=== PATIENT | male | born 1970 | race Caucasian/White ===

== ENCOUNTER 2022-09-18 03:58 | Emergency (ER) | payer OTHER, SELFPAY ==
[2022-09-18 04:01] VITALS: BP 140/88; PULSE 72; RESP 20; TEMP 36.6
--- NOTE | 2022-09-18 04:10 | PC.NURSE ---
patient refused to tell home meds or past medical history, screaming it doesn't apply to a cut on my finger. Sisters only knew no allergies
--- NOTE | 2022-09-18 04:18 | ED.WOUNDLAC ---
HPI - Wound/Laceration General Chief Complaint: Wound/Laceration Stated Complaint: finger injury Source: patient Mode of arrival: ambulatory Limitations: no limitations History of Present Illness HPI narrative: patient with a flap-type laceration to his right index finger occurred earlier today currently not bleeding no numbness or tingling has good range of motion in his finger and is not up-to-date with his tetanus. Onset (ago): hour(s) Place: home Patient tetanus UTD: No Context: accidental Associated symptoms: none Related Data Home Medications Medication Instructions Recorded Confirmed Unable to Obtain Home Medications 09/18/22 09/18/22 Allergies Allergy/AdvReac Type Severity Reaction Status Date / Time No Known Allergies Allergy Mild Unverified 03/01/03 11:09 Review of Systems Review of Systems: All systems reviewed & are unremarkable except as noted in HPI and below PMFSH Past Medical History Medical History Patient denies medical problems Exam Const: General: healthy appearing Nutritional Appearance: well nourished Orientation/consciousness: patient oriented x3 Limitations: no limitations HENMT: Head: normal to inspection Face/Nose/Sinus: Normal external nose present Face and sinus: normal facial exam Mouth: Yes Normal oral and palatal mucosa present Eyes: Conjunctivae: conjunctivae normal EOM: EOMs intact bilaterally Neck: Neck: normal visual inspection Chest: Chest palpation & inspection: normal inspection of the chest Resp: Effort & Inspection: normal respiratory effort Auscultation: clear to auscultation bilaterally Cardio: Rate: regular rate Rhythm: regular rhythm GI: GI Palp: Yes Soft to palpation Auscultation: normal bowel sounds Urinary Catheter: Urinary Catheter: patent and draining Skin: General skin exam: normal color Rashes: no rashes Wounds: wounds noted Extrem: General: normal to inspection Psych: Mental Status: mental status grossly normal Affect: normal affect Course Course Emergency Course: patient updated with his tetanus and Dermabond placed on the flap laceration on his index finger. Vital Signs Vital signs: Vital Signs Temperature 36.6 C 09/18/22 04:01 Pulse Rate 72 09/18/22 04:01 Respiratory Rate 20 09/18/22 04:01 Blood Pressure 140/88 09/18/22 04:01 Temperature 36.6 C 09/18/22 04:01 Pulse Rate 72 09/18/22 04:01 Respiratory Rate 20 09/18/22 04:01 Blood Pressure 140/88 09/18/22 04:01 Procedures Laceration Laceration 1: Side (If applicable): right Size (cm): 2 Description: flap Pre-repair: wound explored and irrigated ====== Skin Level ====== Skin layer closed with: dermabond ====== Subcutaneous Layer ====== ====== Muscle Layer ====== ====== Tendon Layer ====== Critical Care Time Critical Care Time Critical Care Time: No Discharge Plan Discharge Clinical Impression: Laceration Patient Disposition: Home, Self-Care Condition: Stable Instructions: Antibiotic Form, Laceration (ED) Additional Instructions: Advised follow-up with primary care physician if symptoms persist or worsen. Prescriptions: No Action Unable to Obtain Home Medications Follow-up/Referrals: Cristiane,Everton Ochoa MD [Primary Care Provider] - Time of Disposition: :
[2022-09-18] MEDS: TETANUS,DIPHTHERIA,AC PERTUSSIS ADULT 0.5 ML (ADACEL) IM (04:21)
[2022-09-18 04:27] VITALS: BP 132/88; PULSE 66; RESP 16; TEMP 36.4
--- NOTE | 2022-09-18 04:35 | PC.NURSE ---
trying to put dressing on finger, patient kept trying to pinch nurse, pullling down pants asking if he was cute
== END 2022-09-18 04:36 | disposition home or self-care (01) ==
PROVIDERS: Emergency Provider Emergency Medicine; PCP Internal Medicine
DX: S61.210A Laceration without foreign body of right index finger without damage to nail, initial encounter (principal); X58.XXXA Exposure to other specified factors, initial encounter; Z23 Encounter for immunization
CPT/HCPCS: 12001; 90471; 90715; 99282

== ENCOUNTER 2024-03-28 15:49 | Emergency (ER) | payer OTHER, SELFPAY ==
[2024-03-28 16:19] VITALS: BP 149/95; PULSE 96; RESP 20; TEMP 36.7; O2SAT 98
--- NOTE | 2024-03-28 16:45 | ED.GENADULT ---
HPI - General Adult General Chief complaint: Upper Respiratory Infection Stated complaint: positive covid/wants script Time Seen by Provider: 03/28/24 16:45 Source: patient, RN notes reviewed and old records reviewed Mode of arrival: ambulatory Limitations: no limitations History of Present Illness HPI narrative: 53-year-old male presents to the [facility] after testing positive for COVID-19 at a local pharmacy. Has a test with him. Patient states that he started with the body aches and chills today. Treatments prior to arrival: none Related Data Home Medications Medication Instructions Recorded Confirmed montelukast 10 mg tablet 10 mg PO DAILY 03/28/24 03/28/24 Allergies Allergy/AdvReac Type Severity Reaction Status Date / Time No Known Allergies Allergy Mild Verified 03/28/24 16:22 Review of Systems Review of Systems: All systems reviewed & are unremarkable except as noted in HPI and below Constitutional: Constitutional: Reports as per HPI, Reports body ache(s) and Reports chills Eyes: Eyes: Reports no additional eye complaints ENT: Reports system reviewed and no additional complaints, except as documented Cardiovascular: Cardiovascular: Reports no additional cardiovascular complaints, Denies chest pain and Denies dyspnea Respiratory: Respiratory: Reports no additional respiratory complaints, Denies chest congestion, Denies cough and Denies dyspnea Gastrointestinal: Gastrointestinal: Reports no additional gastrointestinal complaints, Denies abdominal pain, Denies nausea and Denies vomiting Musculoskeletal: Musculoskeletal: Reports no additional musculoskeletal complaints Integumentary/Breasts: Skin/Breast: Reports system reviewed and no additional complaints, except as docu Neurologic: Reports system reviewed and no additional complaints, except as documented Psychiatric: Psychiatric: Reports no additional psychiatric complaints Allergic/Immunologic: Allergic/Immunologic: Reports no additional allergic/immunologic complaints PMFSH Past Medical History Medical History Patient denies medical problems Comments At the time of my signature, I reviewed and agree with the nursing past medical, surgical, social, and family history. There is no relevant family history pertinent to the patient complaint. Exam Const: General: cooperative, healthy appearing, comfortable, no acute distress, well developed, alert and well nourished Nutritional Appearance: well nourished and obese Orientation/consciousness: patient oriented x3 Limitations: no limitations HENMT: Head: normal to inspection Ears: hearing grossly normal bilaterally and external ears normal Face/Nose/Sinus: Normal external nose present, Normal nares present, Normal nasal mucous membranes and turbinates present, normal facial exam and face symmetric Face and sinus: normal facial exam and face symmetric Eyes: General: appearance normal, both eyes and all related structures Alignment and Position: alignment normal Periorbital: periorbital findings normal Neck: Neck: normal visual inspection, full ROM, no lymphadenopathy and no meningeal signs Chest: Chest palpation & inspection: normal inspection of the chest Resp: Effort & Inspection: normal respiratory effort and able to speak in complete sentences Auscultation: clear to auscultation bilaterally, no crackles, no rales, no rhonchi and no wheezes Cardio: Rate: regular rate Rhythm: regular rhythm Skin: General skin exam: normal color and no rashes or lesions noted Lesions: no lesions Rashes: no rashes Trauma: no lacerations or abrasions Wounds: no wounds Neuro: General: patient oriented x3, gait normal, tone normal, moves all extremities and no meningeal signs Cranial nerves: Yes Equal, round and reactive pupils present Cognition (Neuro): normal cognition Speech: normal speech Gait exam (Neuro): Normal gait present Extrem: General: n
== END 2024-03-28 16:59 | disposition home or self-care (01) ==
PROVIDERS: Emergency Provider Nurse Practitioner
DX: U07.1 COVID-19 (principal)
CPT/HCPCS: 99211; G0463